=== PATIENT | female | born 1975 | race Hispanic/Latino ===

== ENCOUNTER 2020-08-25 19:28 | Emergency (ER) | payer MEDICAID | END 2020-08-25 20:33 | disposition home or self-care (01) | LOC: ERS 19:28 | DX: J01.90 Acute sinusitis, unspecified (principal); Z85.41 Personal history of malignant neoplasm of cervix uteri | CPT/HCPCS: 71045 ==

== ENCOUNTER 2020-10-16 10:28 | Emergency (ER) | payer OTHER ==
[2020-10-16] MEDS ORDERED: Dexamethasone 4 mg/ml Vial ONE (11:21)
[2020-10-16] MEDS ORDERED: Metoclopramide HCl 10 MG/2 ML VIAL ONE (11:22)
[2020-10-16] MEDS ORDERED: Ketorolac Tromethamine 30 MG/ML VIAL ONE (11:22)
[2020-10-16 11:39] LABS: #Monocytes 0.1 thou/uL (0.11-0.59); #Neutrophils 2.5 thou/uL (1.40-6.50); %Basophils 0.2 % (0.0-1.0); %Eosinophils 0.2 % (0.0-10.0); %Lymphocytes 28.3 % (21.0-51.0); %Monocytes 2.3 % (0.0-10.0); Hemoglobin 13.6 g/dL (12.0-16.0); Mean Corpuscular HGB CONC 34.4 g/dL (32.0-36.0); Mean Corpuscular Hemoglobin 31.8 pg (27.0-31.0); Mean Corpuscular Volume 92.6 fL (78.0-98.0); Mean Platelet Volume 8.7 fL (7.4-10.4); Platelet Count 156 thou/uL (130-400); RBC Distribution Width 12.2 % (11.5-14.5); Red Blood Cell (RBC) Count 4.28 mill/uL (4.20-5.40); White Blood Cell (WBC) Count 3.6 thou/uL (4.8-10.8)
[2020-10-16 12:02] LABS: ALT (SGPT) 18 U/L (8-55); AST (SGOT) 29 U/L (5-34); Alkaline Phosphatase 61 U/L (40-110); Anion Gap 13 mmol/L (10-20); BUN (Urea Nitrogen) 7 mg/dL (7.0-18.7); Bilirubin, Total 0.4 mg/dL (0.2-1.2); CK (CPK) 146 U/L (29-168); Calc. Creatinine Clearance 0 mL/min (70-130); Calcium 8.6 mg/dL (7.8-10.44); Carbon Dioxide 27 mmol/L (22-29); Chloride 96 mmol/L (98-107); Globulin 3.4 g/dL (2.4-3.5); Glucose 109 mg/dL (70-105); Lipase 18 U/L (8-78); Potassium 3.5 mmol/L (3.5-5.1); Protein, Total 7.4 g/dL (6.0-8.3); Sodium 132 mmol/L (136-145)
== END 2020-10-16 12:31 | disposition home or self-care (01) ==
LOC: ERS 10:28
DX: U07.1 COVID-19 (principal); J32.9 Chronic sinusitis, unspecified; Z85.41 Personal history of malignant neoplasm of cervix uteri; Z79.899 Other long term (current) drug therapy
CPT/HCPCS: 36415; 70450; 71045; 80053; 82550; 83690; 84484; 85025; 93005; 96365; 96375; J1100; J1885; J2765

== ENCOUNTER 2020-10-19 12:57 | Emergency (ER) | payer OTHER | END 2020-10-19 14:31 | disposition left against medical advice (07) | LOC: ERS 12:57 | DX: U07.1 COVID-19 (principal) | CPT/HCPCS: 93005 ==

== ENCOUNTER 2020-12-31 10:14 | Outpatient (CLI) | payer OTHER | END 2020-12-31 10:15 | disposition home or self-care (01) | LOC: CTENTCT 10:14 | PROVIDERS: ATTEND Otolaryngology Plastic Surgery within the Head & Neck | DX: J32.9 Chronic sinusitis, unspecified (principal) | CPT/HCPCS: 70486 ==

== ENCOUNTER 2021-01-15 10:43 | Outpatient (CLI) | payer OTHER ==
[2021-01-16 00:36] LABS: SARS-CoV-2 PCR by NAA Not Detected (NotDetected)
== END 2021-01-15 10:44 | disposition home or self-care (01) ==
LOC: LABBT 10:43
PROVIDERS: ATTEND Otolaryngology Plastic Surgery within the Head & Neck
DX: Z01.812 Encounter for preprocedural laboratory examination (principal); J34.2 Deviated nasal septum; J32.9 Chronic sinusitis, unspecified; J30.9 Allergic rhinitis, unspecified; J34.3 Hypertrophy of nasal turbinates; J35.1 Hypertrophy of tonsils; H65.92 Unspecified nonsuppurative otitis media, left ear; H74.09 Tympanosclerosis, unspecified ear; Z20.822 Contact with and (suspected) exposure to COVID-19
CPT/HCPCS: 85014; U0003; U0005

== ENCOUNTER 2021-01-20 06:23 | Day surgery (SDC) | payer OTHER ==
[2021-01-19 13:11] VITALS: BMI 44.9
[2021-01-20] MEDS ORDERED: AFRIN NASAL MIST 15 ML BOT ONE ×2 (06:31→06:58)
[2021-01-20] MEDS ORDERED: Fentanyl 100 MCG/2 ML VIAL ONE ×2 (06:32→08:51)
[2021-01-20] MEDS ORDERED: Famotidine/PF 20 mg/2ml Vial ONE (06:32)
[2021-01-20] MEDS ORDERED: Meperidine HCl/PF 25 MG/ML VIAL ONE (06:32)
[2021-01-20] MEDS ORDERED: Bacitracin Zinc Ointment 30 gm TUBE ONE (06:58)
[2021-01-20] MEDS ORDERED: Lidocaine 1% w/Epinephrine 1:100K 20 ML VIAL ONE (06:58)
[2021-01-20] MEDS ORDERED: Midazolam HCl 2 mg/2 ml Vial ONE (07:07)
[2021-01-20] MEDS ORDERED: Metoclopramide HCl 10 MG/2 ML VIAL ONE (07:31)
[2021-01-20] MEDS ORDERED: Lidocaine 1% PF 5 ML VIAL ONE (07:31)
[2021-01-20] MEDS ORDERED: PROPOFOL 200 MG/20 ML VIAL ONE (07:31)
[2021-01-20] MEDS ORDERED: Dexamethasone 20 MG/5 ML VIAL ONE ×2 (07:31)
[2021-01-20] MEDS ORDERED: Ondansetron PF 4 MG/2 ML Vial ONE (07:31)
[2021-01-20] MEDS ORDERED: HYDROcodone/Acetaminophen 5/325 mg Tablet ONE (10:04)
== END 2021-01-20 10:40 | disposition home or self-care (01) ==
LOC: SDC 06:23
PROVIDERS: ATTEND Otolaryngology Plastic Surgery within the Head & Neck
PROC: 09SM0ZZ Reposition Nasal Septum, Open Approach (ICD-10-PCS; principal; 2021-01-20)
PROC: 099W8ZZ Drainage of Right Sphenoid Sinus, Via Natural or Artificial Opening Endoscopic (ICD-10-PCS; principal; 2021-01-20)
PROC: 099R8ZZ Drainage of Left Maxillary Sinus, Via Natural or Artificial Opening Endoscopic (ICD-10-PCS; principal; 2021-01-20)
PROC: 09TV8ZZ Resection of Left Ethmoid Sinus, Via Natural or Artificial Opening Endoscopic (ICD-10-PCS; principal; 2021-01-20)
PROC: 099T8ZZ Drainage of Left Frontal Sinus, Via Natural or Artificial Opening Endoscopic (ICD-10-PCS; principal; 2021-01-20)
PROC: 09TL0ZZ Resection of Nasal Turbinate, Open Approach (ICD-10-PCS; principal; 2021-01-20)
PROC: 099Q8ZZ Drainage of Right Maxillary Sinus, Via Natural or Artificial Opening Endoscopic (ICD-10-PCS; principal; 2021-01-20)
PROC: 099S8ZZ Drainage of Right Frontal Sinus, Via Natural or Artificial Opening Endoscopic (ICD-10-PCS; principal; 2021-01-20)
PROC: 099X8ZZ Drainage of Left Sphenoid Sinus, Via Natural or Artificial Opening Endoscopic (ICD-10-PCS; principal; 2021-01-20)
PROC: 09TU8ZZ Resection of Right Ethmoid Sinus, Via Natural or Artificial Opening Endoscopic (ICD-10-PCS; principal; 2021-01-20)
PROC: 8E09XBZ Computer Assisted Procedure of Head and Neck Region (ICD-10-PCS; principal; 2021-01-20)
DX: J32.9 Chronic sinusitis, unspecified (principal); J33.9 Nasal polyp, unspecified; J34.2 Deviated nasal septum; J34.3 Hypertrophy of nasal turbinates; J34.89 Other specified disorders of nose and nasal sinuses; J30.9 Allergic rhinitis, unspecified; J35.1 Hypertrophy of tonsils; H74.03 Tympanosclerosis, bilateral; H65.92 Unspecified nonsuppurative otitis media, left ear; Z79.899 Other long term (current) drug therapy
CPT/HCPCS: J1100; J2175; J2250; J2405; J2704; J2765; J3010; S0028

== ENCOUNTER 2021-11-02 07:40 | Outpatient (CLI) | payer OTHER ==
[2021-11-02] MEDS ORDERED: Iopamidol 370 76% 100 ML VIAL ONE (14:27)
== END 2021-11-02 07:41 | disposition home or self-care (01) ==
LOC: CT 07:40
PROVIDERS: ATTEND Physician Assistant Medical
DX: K57.92 Diverticulitis of intestine, part unspecified, without perforation or abscess without bleeding (principal); R10.32 Left lower quadrant pain; K59.09 Other constipation; R11.0 Nausea; K57.30 Diverticulosis of large intestine without perforation or abscess without bleeding; K76.0 Fatty (change of) liver, not elsewhere classified
CPT/HCPCS: 74177; Q9967

== ENCOUNTER 2021-12-13 07:48 | Outpatient (CLI) | payer OTHER | END 2021-12-13 07:49 | disposition home or self-care (01) | LOC: ULT 07:48 | PROVIDERS: ATTEND Specialist | DX: R10.13 Epigastric pain (principal); E66.01 Morbid (severe) obesity due to excess calories; K76.0 Fatty (change of) liver, not elsewhere classified | CPT/HCPCS: 76705 ==

== ENCOUNTER 2021-12-14 09:46 | Outpatient (CLI) | payer OTHER | END 2021-12-14 09:47 | disposition home or self-care (01) | LOC: DTY/OP 09:46 | PROVIDERS: ATTEND Specialist | DX: E66.01 Morbid (severe) obesity due to excess calories (principal); Z68.41 Body mass index [BMI] 40.0-44.9, adult | CPT/HCPCS: 97802 ==

== ENCOUNTER 2022-01-11 12:51 | Outpatient (CLI) | payer OTHER | END 2022-01-11 12:52 | disposition home or self-care (01) | LOC: DTY/OP 12:51 | PROVIDERS: ATTEND Specialist | DX: E66.01 Morbid (severe) obesity due to excess calories (principal); Z68.41 Body mass index [BMI] 40.0-44.9, adult | CPT/HCPCS: 97802 ==

== ENCOUNTER 2022-02-16 09:21 | Outpatient (CLI) | payer OTHER | END 2022-02-16 09:22 | disposition home or self-care (01) | LOC: DTY/OP 09:21 | PROVIDERS: ATTEND Specialist | DX: E66.01 Morbid (severe) obesity due to excess calories (principal); Z68.41 Body mass index [BMI] 40.0-44.9, adult | CPT/HCPCS: 97802 ==

== ENCOUNTER 2022-03-15 10:17 | Outpatient (CLI) | payer OTHER | END 2022-03-15 10:18 | disposition home or self-care (01) | LOC: DTY/OP 10:17 | PROVIDERS: ATTEND Specialist | DX: E66.01 Morbid (severe) obesity due to excess calories (principal); Z68.41 Body mass index [BMI] 40.0-44.9, adult | CPT/HCPCS: 97802 ==

== ENCOUNTER 2022-04-15 10:13 | Outpatient (CLI) | payer OTHER | END 2022-04-15 10:14 | disposition home or self-care (01) | LOC: DTY/OP 10:13 | PROVIDERS: ATTEND Specialist | DX: E66.01 Morbid (severe) obesity due to excess calories (principal) | CPT/HCPCS: 97802 ==

== ENCOUNTER 2022-05-17 09:31 | Outpatient (CLI) | payer OTHER | END 2022-05-17 09:32 | disposition home or self-care (01) | LOC: DTY/OP 09:31 | PROVIDERS: ATTEND Specialist | DX: E66.01 Morbid (severe) obesity due to excess calories (principal) | CPT/HCPCS: 97802 ==

== ENCOUNTER 2022-06-16 14:59 | Outpatient (CLI) | payer OTHER | END 2022-06-16 15:00 | disposition home or self-care (01) | LOC: DTY/OP 14:59 | PROVIDERS: ATTEND Specialist | DX: E66.01 Morbid (severe) obesity due to excess calories (principal) | CPT/HCPCS: 97802 ==

== ENCOUNTER 2022-06-29 11:06 | Outpatient (CLI) | payer OTHER | END 2022-06-29 11:07 | disposition home or self-care (01) | LOC: BICRAD 11:06 | PROVIDERS: ATTEND Family Medicine | DX: Z01.818 Encounter for other preprocedural examination (principal) | CPT/HCPCS: 71046 ==

== ENCOUNTER 2022-07-14 12:05 | Outpatient (CLI) | payer OTHER | END 2022-07-14 12:06 | disposition home or self-care (01) | LOC: DTY/OP 12:05 | PROVIDERS: ATTEND Specialist | DX: E66.01 Morbid (severe) obesity due to excess calories (principal) | CPT/HCPCS: 97802 ==

== ENCOUNTER 2022-11-28 07:21 | Outpatient (CLI) | payer OTHER ==
[2022-11-28] MEDS ORDERED: Iopamidol-370 76% 500 ML MDV (1 ML CHARGE) ONE (09:40)
== END 2022-11-28 07:22 | disposition home or self-care (01) ==
LOC: BICCT 07:21
PROVIDERS: ATTEND Surgery
DX: R10.13 Epigastric pain (principal); K57.30 Diverticulosis of large intestine without perforation or abscess without bleeding; Z90.710 Acquired absence of both cervix and uterus
CPT/HCPCS: 74177; Q9967

== ENCOUNTER 2023-08-21 09:46 | Emergency (ER) | payer BC, OTHER ==
[2023-08-21] MEDS ORDERED: methylPREDNISolone Sod Succ/PF 125 MG/2 ML VIAL ONE ×2 (11:37→11:38)
[2023-08-21] MEDS ORDERED: Ketorolac Tromethamine 30 MG (1 mL) VIAL ONE ×2 (11:37→11:38)
[2023-08-21] MEDS ORDERED: Orphenadrine Citrate 60 MG/2 ML VIAL ONE ×2 (11:37→11:38)
[2023-08-21 11:55] LABS: Bacteria/HPF None Seen HPF (None Seen); Bilirubin Negative (Negative); Blood, Urine Negative (Negative); CAUTI Indications for Culture Pelvic or flank pain; Clarity Clear (Clear); Glucose, Urine (Dipstick) Normal (Negative); Ketone, Urine Negative (Negative); Leukocyte Negative Leu/uL (Negative); Nitrite Negative (Negative); Protein, Urine (Dipstick) Negative (Neg-Trace); RBC/HPF None Seen HPF (0-3); Specific Gravity, Urine 1.006 (1.002-1.036); Squamous Epithelial 0-3 HPF (0-3); Urobilinogen Normal mg/dL (Less than 2); WBC/HPF None Seen HPF (0-3)
[2023-08-21 12:23] LABS: Urine Culture Reflex No No
[2023-08-21] MEDS ORDERED: HYDROcodone/Acetaminophen 7.5/325 mg Tablet ONE (12:44)
== END 2023-08-21 13:42 | disposition home or self-care (01) ==
LOC: ERS 09:46
DX: M54.42 Lumbago with sciatica, left side (principal); M54.41 Lumbago with sciatica, right side
CPT/HCPCS: 81001; 96372; 99283; J1885; J2360; J2930

== ENCOUNTER 2023-09-10 14:21 | Emergency (ER) | payer OTHER ==
[2023-09-10] MEDS ORDERED: Orphenadrine Citrate 60 MG/2 ML VIAL ONE (16:14)
[2023-09-10] MEDS ORDERED: HYDROcodone/Acetaminophen 10/325 mg Tablet ONE (16:15)
[2023-09-10] MEDS ORDERED: Lidocaine 4% Patch TD SCH (16:45)
[2023-09-10 17:26] LABS: Bacteria/HPF None Seen HPF (None Seen); Bilirubin Negative (Negative); Blood, Urine Negative (Negative); CAUTI Indications for Culture Dysuria,urgency,freq; Clarity Clear (Clear); Glucose, Urine (Dipstick) Normal (Negative); Ketone, Urine Negative (Negative); Leukocyte Negative Leu/uL (Negative); Nitrite Negative (Negative); Protein, Urine (Dipstick) Negative (Neg-Trace); RBC/HPF 0-3 HPF (0-3); Specific Gravity, Urine 1.015 (1.002-1.036); Squamous Epithelial 0-3 HPF (0-3); Urobilinogen Normal mg/dL (Less than 2); WBC/HPF 0-3 HPF (0-3); pH, Urine 5.5 (5.0-9.0)
[2023-09-10 17:29] LABS: Urine Culture Reflex No No
[2023-09-10 17:30] LABS: Pregnancy Test - Urine (BHCG) Negative (Negative); Pregu Control Background? CLEAR/WHITE (CLR/WHITE); Pregu Control Bar Appear? YES (CONTROL BAR); Specific Gravity 1.015 (1.002-1.036)
[2023-09-11] MEDS ORDERED: Transdermal Patch Removal TOP SCH (04:45)
== END 2023-09-10 18:19 | disposition home or self-care (01) ==
LOC: ERS 14:21
DX: M54.41 Lumbago with sciatica, right side (principal)
CPT/HCPCS: 81001; 81025; 96372; 99283; J2360